=== PATIENT | male | born 1960 | race Caucasian/White ===

== ENCOUNTER 2023-06-27 15:32 | Inpatient (IN) | payer MEDICAID, OTHER ==
[~2023-06-27] VITALS: Ht 182.9 cm; Wt 98.6 kg
[2023-06-27] MEDS ORDERED: ASPIRIN 81MG TABLET PO ONE (19:15)
[2023-06-27 20:48] LABS: BASOPHILS % 0.4 % (0.0-2.0); EOSINOPHILS % 3.1 % (0.0-5.0); HEMATOCRIT. 43.1 % (42.0-52.0); HEMOGLOBIN. 14.8 g/dL (14.0-18.0); LYMPHOCYTES % 28.8 % (20.0-50.0); MEAN CORPUSCULAR HEMOGLOBIN 30.2 pg (28.0-32.0); MEAN CORPUSCULAR HGB CONC 34.5 g/dL (31.0-37.0); MEAN CORPUSCULAR VOLUME 87.7 fL (80.0-94.0); MEAN PLATELET VOLUME 8.7 fl (7.4-10.4); MONOCYTES % 7.5 % (2.0-8.0); NEUTROPHILS % 60.2 % (40.0-76.0); PLATELET 149 x1000/uL (130-400); RED BLOOD CELL COUNT 4.91 mill/uL (4.7-6.1)
[2023-06-27 21:05] LABS: ALANINE AMINOTRANSFERASE 19 IU/L (10-49); ALBUMIN 4.1 g/dL (3.2-4.8); ASPARTATE AMINOTRANSFERASE 16 IU/L (<34); BILIRUBIN TOTAL 0.5 mg/dL (0.1-1.0); CALCIUM 9.2 mg/dL (8.7-10.4); CARBON DIOXIDE 27 mEq/L (21-32); CHLORIDE 108 mEq/L (98-107); CREATININE 1.1 mg/dL (0.6-1.3); GLUCOSE 87 mg/dL (70-105); POTASSIUM 4.2 mEq/L (3.5-5.1); PROTEIN TOTAL 7.4 g/dL (6.0-8.3); SODIUM 141 mEq/L (136-145); TROPONIN I HIGH SENSITIVITY 9 ng/L (3.0-53); UREA NITROGEN BLOOD 21 mg/dL (9-23)
[2023-06-28 00:06] LABS: TROPONIN I HIGH SENSITIVITY 10 ng/L (3.0-53)
[2023-06-28 02:56] VITALS: BP 124/78; PULSE 59; RESP 18; TEMP 97
[2023-06-28 04:00] VITALS: BP 134/95; PULSE 82; RESP 20; TEMP 98
[2023-06-28] MEDS ORDERED: ASPI-1497 PO (04:15)
[2023-06-28] MEDS ORDERED: ATOR-2 PO (04:15)
[2023-06-28] MEDS ORDERED: METO25TA6 PO (04:15)
[2023-06-28] MEDS ORDERED: CITA20SO2 PO (04:15)
[2023-06-28] MEDS ORDERED: TAMS-11 MT (04:15)
[2023-06-28] MEDS ORDERED: TICA90TA PO (04:15)
[2023-06-28] MEDS ORDERED: ALLO100T PO (04:15)
[2023-06-28] MEDS ORDERED: GABA-532 PO (04:15)
[2023-06-28] MEDS ORDERED: LEVO25TA7 PO (04:15)
[2023-06-28] MEDS ORDERED: TICA90TA MT (04:15)
[2023-06-28 06:32] LABS: BASOPHILS % 0.5 % (0.0-2.0); EOSINOPHILS % 3.7 % (0.0-5.0); HEMATOCRIT. 41.5 % (42.0-52.0); HEMOGLOBIN. 14.1 g/dL (14.0-18.0); LYMPHOCYTES % 34.2 % (20.0-50.0); MEAN CORPUSCULAR HEMOGLOBIN 30.4 pg (28.0-32.0); MEAN CORPUSCULAR VOLUME 89.6 fL (80.0-94.0); MEAN PLATELET VOLUME 8.7 fl (7.4-10.4); MONOCYTES % 8.8 % (2.0-8.0); NEUTROPHILS % 52.8 % (40.0-76.0); PLATELET 139 x1000/uL (130-400); RED BLOOD CELL COUNT 4.64 mill/uL (4.7-6.1); RED CELL DISTRIBUTION WIDTH 14.2 % (11.6-14.6); WHITE BLOOD COUNT 7.1 x1000/uL (4.5-11.0)
[2023-06-28] MEDS ORDERED: LEVOTHYROXINE SODIUM 25MCG TABLET PO SCH (06:50)
[2023-06-28 06:57] LABS: CALCIUM 8.9 mg/dL (8.7-10.4); CARBON DIOXIDE 27 mEq/L (21-32); CHLORIDE 109 mEq/L (98-107); GLUCOSE 86 mg/dL (70-105); POTASSIUM 4.2 mEq/L (3.5-5.1); SODIUM 143 mEq/L (136-145); UREA NITROGEN BLOOD 19 mg/dL (9-23)
[2023-06-28 08:00] VITALS: BP 131/91; PULSE 49; RESP 20; TEMP 97.9
[2023-06-28] MEDS ORDERED: ASPIRIN 81MG TABLET PO SCH (09:00)
[2023-06-28] MEDS ORDERED: ASPIRIN/SOD BICARB/CITRIC ACID 324MG TAB EFF ONE (09:25)
[2023-06-28] MEDS: ALLOPURINOL 100 MG TABLET PO SCH (09:32)
[2023-06-28] MEDS: ISOSORBIDE MONONITRATE 30MG TABLET SR 24HR PO SCH (09:32)
[2023-06-28] MEDS: CITALOPRAM HYDROBROMIDE 10MG TABLET PO SCH (09:32)
[2023-06-28] MEDS: METOPROLOL TARTRATE 25MG TABLET PO SCH ×2 (09:32→17:00)
[2023-06-28] MEDS ORDERED: DIPHENHYDRAMINE 50MG/ML VIAL ONE (09:43)
[2023-06-28] MEDS ORDERED: VERAPAMIL HCL 2.5 MG/1 ML 2ML VIAL IV ONE (09:43)
[2023-06-28] MEDS ORDERED: IODIXANOL 320MG/ML 100 ML BOTTLE IV ONE (09:43)
[2023-06-28] MEDS ORDERED: MIDAZOLAM HCL 2 MG/2 ML VIAL ONE (09:43)
[2023-06-28] MEDS ORDERED: LIDOCAINE HCL 1% 20ML VIAL (Pyxis) INJ ONE (09:43)
[2023-06-28] MEDS ORDERED: HEPARIN 1000 UNITS/ML 10ML ONE (09:43)
[2023-06-28] MEDS ORDERED: FENTANYL CITRATE/PF 50MCG/ML 2ML VIAL ONE ×2 (09:43→10:26)
[2023-06-28 10:01] LABS: ALANINE AMINOTRANSFERASE 19 IU/L (10-49); ALBUMIN 3.9 g/dL (3.2-4.8); ASPARTATE AMINOTRANSFERASE 16 IU/L (<34); BILIRUBIN TOTAL 0.5 mg/dL (0.1-1.0); CALCIUM 9.1 mg/dL (8.7-10.4); CARBON DIOXIDE 26 mEq/L (21-32); CHLORIDE 109 mEq/L (98-107); CHOLESTEROL 112 mg/dL (<200); CREATINE KINASE 80 IU/L (46-171); CREATINE KINASE MB FRACTION 1.1 ng/mL (0.5-3.6); GLUCOSE 102 mg/dL (70-105); HDL CHOLESTEROL 28 mg/dL (>55); LDL CHOLESTEROL 64 mg/dL (5-100); POTASSIUM 4.2 mEq/L (3.5-5.1); PROTEIN TOTAL 6.9 g/dL (6.0-8.3); SODIUM 141 mEq/L (136-145); TRIGLYCERIDE 94 mg/dL (0-150); TROPONIN I HIGH SENSITIVITY 11 ng/L (3.0-53); UREA NITROGEN BLOOD 15 mg/dL (9-23)
[2023-06-28] MEDS ORDERED: HYDROMORPHONE HCL/PF 2MG/ML CPJ ONE (10:51)
[2023-06-28] MEDS ORDERED: ATROPINE SULFATE 1MG/10ML SYR ONE (10:54)
[2023-06-28] MEDS ORDERED: EPINEPHRINE 0.1MG/ML (1:10,000) 10ML SYR ONE (10:55)
[2023-06-28] MEDS ORDERED: MORPHINE SULFATE 2 MG/ML CPJ (NOT FOR IM USE) IV ONE (11:02)
[2023-06-28] MEDS ORDERED: ONDANSETRON HCL 4MG/2ML INJ ONE (11:02)
[2023-06-28] MEDS ORDERED: TICAGRELOR 90 MG TABLET PO ONE (11:18)
[2023-06-28] MEDS ORDERED: ONDANSETRON HCL 4MG/2ML INJ IV PRN (11:30)
[2023-06-28] MEDS ORDERED: MORPHINE SULFATE 2 MG/ML CPJ (NOT FOR IM USE) IV PRN ×2 (11:30)
[2023-06-28] MEDS ORDERED: ATROPINE SULFATE 1MG/10ML SYR IV PRN (11:30)
[2023-06-28 12:00] VITALS: BP 116/77; PULSE 52; RESP 19; TEMP 98.3
[2023-06-28 16:00] VITALS: BP 105/69; PULSE 55; RESP 21; TEMP 98.4
[2023-06-28] MEDS: TICAGRELOR 90 MG TABLET PO SCH (17:24)
[2023-06-28] MEDS ORDERED: TAMSULOSIN HCL 0.4MG SR CAPSULE PO SCH (18:00)
[2023-06-28 18:16] LABS: CREATINE KINASE MB FRACTION 1.1 ng/mL (0.5-3.6)
[2023-06-28] MEDS ORDERED: THROAT LOZENGES-BENZOCAINE/MENTH/CETYLPYRD CL LOZENGES MM PRN (19:00)
[2023-06-28 20:00] VITALS: BP 110/76; PULSE 60; RESP 18; TEMP 98
[2023-06-28] MEDS ORDERED: GABAPENTIN 300MG CAPSULE PO SCH (21:00)
[2023-06-28] MEDS ORDERED: ATORVASTATIN CALCIUM 40MG TABLET PO SCH (21:00)
[2023-06-28] MEDS: ACETAMINOPHEN 325MG TABLET PO PRN (23:31)
[2023-06-29] VITALS: BP 119/82; PULSE 69; RESP 16; TEMP 98.3
[2023-06-29] MEDS ORDERED: GABAPENTIN 300MG CAPSULE PO NR (00:15)
[2023-06-29] MEDS ORDERED: GABAPENTIN 300MG CAPSULE PO ONE (00:15)
[2023-06-29 04:00] VITALS: BP 124/88; PULSE 62; RESP 20; TEMP 98.9
[2023-06-29 07:26] LABS: BASOPHILS % 0.2 % (0.0-2.0); EOSINOPHILS % 4.1 % (0.0-5.0); HEMATOCRIT. 38.5 % (42.0-52.0); HEMOGLOBIN. 13.7 g/dL (14.0-18.0); LYMPHOCYTES % 13.2 % (20.0-50.0); MEAN CORPUSCULAR HEMOGLOBIN 30.8 pg (28.0-32.0); MEAN CORPUSCULAR HGB CONC 35.5 g/dL (31.0-37.0); MEAN CORPUSCULAR VOLUME 86.7 fL (80.0-94.0); MEAN PLATELET VOLUME 8.8 fl (7.4-10.4); MONOCYTES % 8.1 % (2.0-8.0); NEUTROPHILS % 74.4 % (40.0-76.0); PLATELET 126 x1000/uL (130-400); RED BLOOD CELL COUNT 4.44 mill/uL (4.7-6.1); RED CELL DISTRIBUTION WIDTH 13.8 % (11.6-14.6); WHITE BLOOD COUNT 7.3 x1000/uL (4.5-11.0)
[2023-06-29] MEDS ORDERED: HYDROCODONE/ACETAMINOPHEN 5/325MG TABLET PO PRN (07:30)
[2023-06-29] MEDS ORDERED: MORPHINE SULFATE 2 MG/ML CPJ (NOT FOR IM USE) IV PRN ×2 (07:30→08:00)
[2023-06-29 07:44] LABS: CALCIUM 8.8 mg/dL (8.7-10.4); CARBON DIOXIDE 29 mEq/L (21-32); CHLORIDE 105 mEq/L (98-107); CREATININE 1.1 mg/dL (0.6-1.3); GLUCOSE 106 mg/dL (70-105); SODIUM 137 mEq/L (136-145); UREA NITROGEN BLOOD 18 mg/dL (9-23)
[2023-06-29 08:00] VITALS: BP 133/72; PULSE 67; RESP 17; TEMP 98.4
[2023-06-29] MEDS ORDERED: NALOXONE HCL 0.4MG/ML VIAL IV PRN (08:00)
[2023-06-29] MEDS: METOPROLOL TARTRATE 25MG TABLET PO SCH (09:00)
[2023-06-29] MEDS ORDERED: ASPIRIN 81MG TABLET PO SCH (09:00)
[2023-06-29] MEDS: TICAGRELOR 90 MG TABLET PO SCH (09:04)
[2023-06-29] MEDS: CITALOPRAM HYDROBROMIDE 10MG TABLET PO SCH (09:05)
[2023-06-29] MEDS: ALLOPURINOL 100 MG TABLET PO SCH (09:05)
[2023-06-29] MEDS ORDERED: TICA90TA MT (09:11)
[2023-06-29] MEDS ORDERED: ISOS30TA91 PO (09:11)
[2023-06-29] MEDS ORDERED: ASPI-1497 PO (09:11)
[2023-06-29] MEDS: ISOSORBIDE MONONITRATE 30MG TABLET SR 24HR PO SCH (09:12)
[2023-06-29 11:14] VITALS: BP 137/81; PULSE 77; TEMP 98.1; O2SAT 99
[2023-06-29 12:00] VITALS: BP 137/83; PULSE 87; RESP 25; TEMP 98.1
[2023-06-29] MEDS: ACETAMINOPHEN 325MG TABLET PO PRN (12:03)
== END 2023-06-29 14:05 | disposition home or self-care (01) | DRG 175 ==
LOC: ER 15:32 → MICUSO 21:21 → EDBEDREQTM 21:26 → EDBEDREQ 21:26 → 3WST 06-28 01:06
PROVIDERS: ADMIT Internal Medicine; ATTEND Internal Medicine
PROC: 027035Z Dilation of Coronary Artery, One Artery with Two Drug-eluting Intraluminal Devices, Percutaneous Approach (ICD-10-PCS; principal; 2023-06-28)
PROC: 4A023N7 Measurement of Cardiac Sampling and Pressure, Left Heart, Percutaneous Approach (ICD-10-PCS; 2023-06-28)
PROC: B2111ZZ Fluoroscopy of Multiple Coronary Arteries using Low Osmolar Contrast (ICD-10-PCS; 2023-06-28)
PROC: B2151ZZ Fluoroscopy of Left Heart using Low Osmolar Contrast (ICD-10-PCS; 2023-06-28)
DX: I25.119 Atherosclerotic heart disease of native coronary artery with unspecified angina pectoris (principal); E78.5 Hyperlipidemia, unspecified; I10 Essential (primary) hypertension; I25.2 Old myocardial infarction; M25.512 Pain in left shoulder; N40.0 Benign prostatic hyperplasia without lower urinary tract symptoms
CPT/HCPCS: 36415; 71045; 80048; 80053; 80061; 82550; 82553; 83735; 83880; 84484; 85025; 85347; 92928; 93005; 93306; 93458; 97162; 99285; C1769; C1874; C1887; C1893; J0461; J1170; J1200; J1644; J2250; J2270; J2405; J3010; J3490; Q9967; J8499